=== PATIENT | male | born 1955 | race Caucasian/White ===

== ENCOUNTER 2017-08-03 05:51 | Day surgery (SDC) | payer BC ==
[2017-08-03] MEDS ORDERED: DIPRIVAN 200 MG/20 ML IV ONE (05:52)
[2017-08-03] MEDS ORDERED: Lactated Ringers 1,000 ML IV SCH (06:30)
[2017-08-03 08:28] VITALS: BP 133/75; PULSE 53; O2SAT 97
--- NOTE | 2017-08-03 08:31 | OP ---
SURGERY DATE/TIME: 08/03/2017718 PREOPERATIVE DIAGNOSIS: Epigastric abdominal pain. POSTOPERATIVE DIAGNOSIS: Moderate gastritis. PROCEDURE: EGD. SURGEON: Gene Kuo M.D. ANESTHESIA: MAC by Augustine Peterson CRNA. ESTIMATED BLOOD LOSS: Minimal. SPECIMENS: Two cold forceps biopsies from the gastric antrum for Helicobacter pylori testing. DESCRIPTION OF PROCEDURE: After informed written consent was obtained, the patient was taken to the endoscopy suite. He underwent monitored anesthesia and a bite block was inserted. The endoscope was inserted into posterior oropharynx and under direct visualization the esophagus traversed. Esophageal mucosa was free of any lesions or abnormalities. The gastroesophageal junction appeared normal upon entering the stomach. There is normal rugated gastric mucosa free of lesions or defects. There were moderate gastritis-type changes in the gastric antrum with no focal ulcerations or evidence of bleeding. The pylorus was traversed. The first and second portions of the duodenum were within normal limits. Upon withdrawal two cold forceps biopsies were taken from the gastric antrum and sent for Helicobacter pylori testing. Minimal blood loss. Upon withdrawal again the mucosal structures appeared normal. There were no abnormalities. I have advised that he hold his aspirin therapy for the next week and follow up in one week for pathology results.
== END 2017-08-03 08:45 | disposition home or self-care (01) ==
LOC: SDC 05:51
PROVIDERS: ATTEND Family Medicine
DX: K29.70 Gastritis, unspecified, without bleeding (principal); R10.13 Epigastric pain; K21.9 Gastro-esophageal reflux disease without esophagitis; I10 Essential (primary) hypertension
CPT/HCPCS: 88305; 88342; J2704

== ENCOUNTER 2018-12-25 09:23 | Day surgery (SDC) | payer BC ==
--- NOTE | 2018-12-25 08:14 | HP ---
DATE OF SURGERY: 12/25/2018 HISTORY OF PRESENT ILLNESS: The patient is a 63 year-old for the past two to three years had epigastric pain, increased frequency, two episodes in the past few days associated with nausea, worse with barbecue. No jaundice. Bowel movements loose after a pain attack. Ultrasound showed cholelithiasis. He had symptomatic cholelithiasis, chronic cholecystitis. I felt he would benefit from cholecystectomy. PAST MEDICAL HISTORY: He had some chronic neck and shoulder pain, hypertension. History of psoriasis and arthritis in the past as well. Degenerative disc disease. He had a stress test in the past that was okay. PAST SURGICAL HISTORY: He had neck fused in the past. MEDICATIONS: Depo-Medrol in the past. Trazodone, ranitidine, Pravastatin, omeprazole, nitroglycerin PRN, losartan, hydrocodone, dicyclomine, diazepam, aspirin. ALLERGIES: NKDA. FAMILY HISTORY: Heart disease. SOCIAL HISTORY: No smoking. He drinks five to six drinks a week, denies abuse. REVIEW OF SYSTEMS: Fourteen systems reviewed per admission assessment. No chest pain or palpitations other systems negative or noncontributory as above and per preadmission questionnaire. PHYSICAL EXAMINATION: GENERAL: No acute distress. HEENT: Sclerae nonicteric. NECK: No JVD. CHEST: Equal excursion, nonlabored breathing. CVS: Regular rate and rhythm. ABDOMEN: Soft, some mild tenderness epigastrium. No peritoneal signs. EXTREMITIES: No significant edema. NEURO: Alert, moving extremities symmetrically. No gross motor deficits noted. IMPRESSION: Symptomatic cholelithiasis, chronic cholecystitis. I feel the patient will benefit from cholecystectomy. Risks and benefits explained in detail including but not limited to bleeding or infection, risk of trocar injury or hernia, small risk of bowel, bladder or blood vessel injury, risk of bile leak, bile duct injury, retained stone or sludge possibly requiring further procedure either open or ERCP, general risk of anesthesia, deep venous thrombosis, pulmonary embolism, pneumonia, perioperative risk of aches, pains, bloating, constipation and/or loose stools possibly even chronic in nature, possibility this procedure may not improve his symptoms. He may need further work up and/or testing, endoscopy, other studies or procedures. He understands and agrees to the planned procedure, will proceed with laparoscopic cholecystectomy with possible open as an outpatient.
[~2018-12-25 09:23] MED LIST: DIPRIVAN 200 MG/20 ML IV ONE; Lactated Ringers 1,000 ML IV ONE; Lactated Ringers 1,000 ML IV SCH; MEFOXIN 2 GM PREMIX** 2 GM/50 ML ML IV SCH; Quelicin Fliptop 200 MG/10 ML ONE; SUBLIMAZE 100 MCG/2 ML ONE; Sensorcaine 0.25% 10 ML ONE; Zemuron 100 MG/10 ML ONE
[2018-12-25] MEDS ORDERED: MEFOXIN 2 GM PREMIX** 2 GM/50 ML ML IV ONE (09:53)
[2018-12-25] MEDS ORDERED: Lactated Ringers 0 ML IV ONE (09:53)
[2018-12-25] MEDS ORDERED: Xylocaine-Mpf 2% 5 Ml Vial ONE (11:34)
[2018-12-25] MEDS ORDERED: Ephedrine Sulfate 50 MG/ML ONE (11:34)
[2018-12-25] MEDS ORDERED: APRESOLINE 20 MG/ML INJ ONE (12:06)
[2018-12-25 12:44] LABS: CK-Creatinine Phosphokinase 274 U/L (55-170); NT PRO BNP 65.5 pg/mL (0-900)
[2018-12-25 12:45] LABS: TROPONIN < 0.012 ng/mL (0.000-0.034)
[2018-12-25 12:59] LABS: ALBUMIN 3.7 g/dL (3.5-5.0); ALKALINE PHOSPHATASE 55 U/L (38-126); ANION GAP 14.4 MEQ/L (5-15); BLOOD UREA NITROGEN 13 mg/dL (9-20); CHLORIDE 108 mmol/L (98-107); Calcium 8.9 mg/dL (8.4-10.2); Carbon Dioxide 24 mmol/L (22-30); Creatinine 1 0.89 mg/dL (0.66-1.25); Glucose 106 mg/dL (74-106); Potassium 4.4 mmol/L (3.5-5.1); SGOT/AST 26 U/L (17-59); SGPT/ALT 23 U/L (0-50); SODIUM 142 mmol/L (137-145); Total Protein 6.4 g/dL (6.3-8.2)
[2018-12-25 13:39] VITALS: O2SAT 97
[2018-12-25 13:56] VITALS: BP 155/79; PULSE 58
--- NOTE | 2018-12-26 08:04 | PROG NOTE ---
DATE: 12/25/2018 HISTORY: The patient was scheduled for outpatient laparoscopic cholecystectomy for cholelithiasis, chronic cholecystitis. However, anesthesia was induced. The procedure had not been started. Anesthesia noted that he had some bigeminy and change in QRS and ST changes. He had a prior cleared cardiac clearance. 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 This was explained. PHYSICAL EXAMINATION: ABDOMEN: Again, his abdomen had been soft. EXTREMITIES: No edema. NEURO: Alert. NECK: No JVD. CVS regular rhythm. Findings were discussed with the patient out in the waiting area. They agreed with the decision. The patient was then extubated and transferred to the recovery room. Again, no procedure was done on this patient. For details see anesthesia notes. I will forward the anesthesia rhythm strips, EKG and anesthesia notes to Dr. Haro. Will reschedule the patient in [place]. Dr. Haro will decide whether he will need cardiac cath or other intervention necessary prior to cholecystectomy versus just scheduling cholecystectomy in an area closer to the logging rafter laborer.
== END 2018-12-25 14:02 | disposition home or self-care (01) ==
LOC: SDC 09:23
PROVIDERS: ATTEND Surgery
DX: K80.10 Calculus of gallbladder with chronic cholecystitis without obstruction (principal); R00.8 Other abnormalities of heart beat; I10 Essential (primary) hypertension; I25.10 Atherosclerotic heart disease of native coronary artery without angina pectoris; Z79.899 Other long term (current) drug therapy
CPT/HCPCS: 36415; 80053; 82550; 83880; 84484; 93005; J0330; J0360; J0694; J2704; J3010

== ENCOUNTER 2019-06-02 15:26 | Emergency (ER) | payer BC ==
[2019-06-02] MEDS ORDERED: NORCO 5/325 MG PO ONE (16:27)
[2019-06-02] MEDS ORDERED: NORCO 5/325 MG ONE (16:31)
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
[2019-06-02 17:44] VITALS: BP 140/85; PULSE 71; O2SAT 97
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
== END 2019-06-02 17:47 | disposition home or self-care (01) ==
LOC: ED 15:26
DX: S01.81XA Laceration without foreign body of other part of head, initial encounter (principal); S02.81XA Fracture of other specified skull and facial bones, right side, initial encounter for closed fracture; V43.52XA Car driver injured in collision with other type car in traffic accident, initial encounter; S80.819A Abrasion, unspecified lower leg, initial encounter; S80.10XA Contusion of unspecified lower leg, initial encounter; I25.10 Atherosclerotic heart disease of native coronary artery without angina pectoris; I10 Essential (primary) hypertension; K21.9 Gastro-esophageal reflux disease without esophagitis; K75.89 Other specified inflammatory liver diseases
CPT/HCPCS: 12011; 73552; 99284; A9270-GY

== ENCOUNTER 2021-10-31 22:27 | Emergency (ER) | payer MEDICARE, OTHER ==
[2021-10-31 22:37] VITALS: O2SAT 98
[2021-10-31] MEDS ORDERED: BACIGUENT PACKET ONE (22:49)
--- NOTE | 2021-10-31 22:56 | ERPHSYRPT ---
- History of Present Illness Time Seen by Provider: 10/31/21 22:50 Source: patient Exam Limitations: no limitations Patient Subjective Stated Complaint: laceration to left lower leg Triage Nursing Assessment: pt was pulling a piece of steel and as he was backing up he forgot there was a set of ramps there and he hit it and the steel knocked him over, cutting his leg. Pt has a 4cm laceration to left lower posterior calf. Mod amt of bleeding noted. Physician History: pt was pulling a piece of steel and as he was backing up he forgot there was a set of ramps there and he hit it and the steel knocked him over, cutting his leg. Pt has a 4cm laceration to left lower posterior calf. Mod amt of bleeding noted. Tetanus injection 4-5 years ago. Timing/Duration: today Associated Symptoms: denies symptoms Allergies/Adverse Reactions: No Known Drug Allergies Allergy (Verified 10/31/21 22:49) Home Medications: Aspirin [Adult Low Dose Aspirin EC] 81 mg PO DAILY 03/13/12 [History] Pravastatin Sodium 10 mg [Pravachol 10 MG] 20 mg PO QHS 03/13/12 [History] Losartan Potassium [Cozaar] 50 mg PO BID 06/13/15 [History] Nebivolol HCl [Bystolic] 20 mg PO DAILY 06/13/15 [History] Omeprazole [Prilosec] 20 mg PO BID 06/13/15 [History] Dicyclomine HCl 10 mg PO BID 12/25/18 [History] Hx Tetanus, Diphtheria Vaccination/Date Given: Yes Hx Influenza Vaccination/Date Given: No Hx Pneumococcal Vaccination/Date Given: No Immunizations Up to Date: Yes Travel Risk - International Travel Have you traveled outside of the country in past 3 weeks: No - Coronavirus Screening Are you exhibiting any of the following symptoms?: No Close contact with a COVID-19 positive Pt in past 14-21 Days: No - Vaccine Status Have you recieved a Covid-19 vaccination: Yes [place]argeman: Moderna - Vaccination Dates Date of 2cond Vaccination (if applicable): . - Review of Systems Constitutional: No Symptoms Eyes: No Symptoms Ears, Nose, & Throat: No Symptoms Respiratory: No Symptoms Cardiac: No Symptoms Abdominal/Gastrointestinal: No Symptoms Genitourinary Symptoms: No Symptoms Musculoskeletal: No Symptoms Skin: Other (laceration left calf) Neurological: No Symptoms Psychological: No Symptoms - Past Medical History Pertinent Past Medical History: Yes Neurological History: No Pertinent History ENT History: No Pertinent History Cardiac History: Coronary Artery Disease, High Cholesterol, Hypertension Respiratory History: No Pertinent History Endocrine Medical History: No Pertinent History Musculoskeletal History: No Pertinent History GI Medical History: Esophageal Disorder, GERD, Gallbladder Disease, Hepatitis, Irritable Bowel, Ulcer History: No Pertinent History Psycho-Social History: No Pertinent History Male Reproductive Disorders: No Pertinent History Other Medical History: hepatitis a - Past Surgical History Past Surgical History: Yes Neuro Surgical History: No Pertinent History Cardiac: Cardiac Catheterization Respiratory: No Pertinent History Gastrointestinal: Appendectomy, Cholecystectomy Genitourinary: No Pertinent History Musculoskeletal: Orthopedic Surgery Male Surgical History: No Pertinent History Other Surgical History: 2 left knee scopes nerve stimlator in right side of back. C4-5 fusion in neck. - Social History Smoking Status: Never smoker Exposure to second hand smoke: No Drug Use: none Patient Lives Alone: No - Nursing Vital Signs Nursing Vital Signs: Initial Vital Signs Temperature 97.9 F 10/31/21 22:35 Pulse Rate 69 10/31/21 22:35 Respiratory Rate 20 10/31/21 22:35 Blood Pressure 136/77 10/31/21 22:35 O2 Sat by Pulse Oximetry 98 10/31/21 22:35 Pain Scale Pain Intensity 4 - Physical Exam General Appearance: no apparent distress Eye Exam: PERRL/EOMI Ears, Nose, Throat Exam: normal ENT inspection Neck Exam: normal inspection Respiratory Exam: normal breath sounds Cardiovascular Exam: regular rate/rhythm Gastrointestinal/Abdomen Exam: soft Back Exam: normal inspection Extremity Exam: normal inspection, lacerations (4 cms on left mid calf) Neurologic Exam: alert, oriented x 3 SpO2: 98 Procedures - Laceration/Wound Repair Left Calf Time of Procedure: 22:52 Wound Location: Left, lower leg Wound Length (cm): 4 Wound's Depth, Shape: superficial, irregular Wound Explored: contaminated Irrigated: Yes Hibiclens Prep: Yes Wound Repaired With: Troy (11 phoebe taken) - Course Nursing assessment & vital signs reviewed: Yes Ordered Tests: Medication Summary Discontinued Medications Generic Name Dose Route Start Last Admin Trade Name Freq PRN Reason Stop Dose Admin Bacitracin Zinc Confirm 10/31/21 22:49 Bacitracin Packet 1 Each Pckt Administered 10/31/21 22:50 Dose 1 each .ROUTE .STK-MED ONE - Progress Progress: improved Counseled pt/family regarding: diagnosis, need for follow-up (phoebe removal in 10 days) - Departure Departure Disposition: Home Clinical Impression: Laceration of left calf without complication Qualifiers: Encounter type: initial encounter Qualified Code(s): S81.812A - Laceration without foreign body, left lower leg, initial encounter Condition: Stable Critical Care Time: No Referrals: NISHANT OLVERA [Primary Care Provider] - Follow up/PCP as directed Instructions: Wound Care (DC), Laceration Repair With Phoebe (DC) Additional Instructions: Discharge/Care Plan JENNIFER HACKETT was seen on 10/31/21 in the Emergency Room. The patient was counseled regarding Diagnosis,Lab results, Imaging studies, need for follow up and when to return to the Emergency Room. Prescriptions given: Discharge Note I have spoken with the patient and/or caregivers. I have explained the patient's condition, diagnosis and treatment plan based on the information available to me at this time. I have answered the patient's and/or caregiver's questions and addressed any concerns. The patient and/or caregivers have as good understanding of the patient's diagnosis, condition and treatment plan as can be expected at this point. The vital signs have been stable. The patient's condition is stable and appropriate for discharge from the emergency department. The patient will pursue further outpatient evaluation with the primary care physician or other designated or consulting physician as outlined in the discharge instructions. The patient and/or caregivers are agreeable to this plan of care and follow-up instructions have been explained in detail. The patient and/or caregivers have received these instruction. The patient/and or caregivers are aware that any significant change in condition or worsening of symptoms should prompt an immediate return to this or the closest emergency department or call 911. Phoebe removal in 10 days at your primary care physician office. Apply triple antibiotic cream once a day. keep dressing on. Ermias for redness around sutures. Follow up wound care for infection in 3 days. Prescriptions: Cephalexin Mh 500 mg [Keflex 500 mg] 500 mg PO Q6H #40 cap
[2021-10-31 23:46] VITALS: BP 113/68; PULSE 61
== END 2021-10-31 23:27 | disposition home or self-care (01) ==
LOC: ED 22:27
DX: S81.812A Laceration without foreign body, left lower leg, initial encounter (principal); W01.118A Fall on same level from slipping, tripping and stumbling with subsequent striking against other sharp object, initial encounter; E78.5 Hyperlipidemia, unspecified; I10 Essential (primary) hypertension; Z79.899 Other long term (current) drug therapy
CPT/HCPCS: 12002; 99281; A9270-GY